=== PATIENT | male | born 2000 | race Caucasian/White ===

== ENCOUNTER 2018-09-19 13:15 | Emergency (ER) | payer MEDICAID ==
[~2018-09-19] VITALS: Ht 177.8 cm; Wt 72.5 kg
[2018-09-19 13:18] VITALS: BP 116/75
== END 2018-09-19 14:16 | disposition home or self-care (01) ==
LOC: ED 14:01
DX: L02.414 Cutaneous abscess of left upper limb (principal)
CPT/HCPCS: 10021; 90471; 90715; 99283; 99284

== ENCOUNTER 2018-11-05 11:18 | Emergency (ER) | payer MEDICAID ==
[~2018-11-05] VITALS: Ht 180.3 cm; Wt 74.0 kg
[2018-11-05 11:29] VITALS: BP 121/84
== END 2018-11-05 12:31 | disposition home or self-care (01) ==
LOC: ED 11:43
DX: B86 Scabies (principal)
CPT/HCPCS: 99283